=== PATIENT | male | born 1960 | race Caucasian/White ===

== ENCOUNTER 2021-11-27 07:30 | Outpatient (CLI) | payer OTHER, SELFPAY ==
--- NOTE | ~2021-11-27 | NM_ITS ---
EXAMINATION: NM dayna stress w perfusion DATE: 11/27/2021 10:57 INDICATION: Shortness of breath TECHNIQUE: Rest images were obtained following intravenous administration of 10.2 mCi Tc99m tetrofosm in (Myoview). The patient was infused intravenously with Lexiscan (Regadenoson). Then, 32.7 mCi Tc99m tetrofosmin (Myoview) was administered intravenously, and stress images were obtained. Data was maría nstructed into short axis and horizontal and vertical long axis SPECT images. Gated SPECT images were also obtained. COMPARISON: None. FINDINGS: There is no definite reversible or fixed perfusion abnormality to suggest ischemia or infar ction. There is normal left ventricular chamber size, wall motion and ejection fraction. Left ventr icular ejection fraction measures >70%. IMPRESSION: 1. Normal myocardial perfusion at rest and during stress. 2. Left ventricular ejection fraction measuring >70%. Reviewed, dictated and finalized at location A.
--- NOTE | 2021-11-27 07:43 | ECHO_ITS ---
Patient Info Name: Jeronimo Khan Age: 61 years : 1960 Gender: Male Ht: 71 in Wt: 250 lbs BSA: 2.42 m2 HR: 65 bpm BP: 168 / 92 mmHg Heart Rhythm: Sinus Rhythm Technical Quality: Fair Exam Date: 11/27/2021 7:59 AM Exam Location: [facility] Patient Status: Outpatient Admit Date: 11/27/2021 Staff Ordering Physician: Jonas Osman PA-C Pole Inspector: Mee Torres RDCS Attending Provider: Jonas Osman PA-C Referring Physician: Jacqui BRAND; Exam Type: CA echo doppler color flow Study Info Indications R60.9 - Edema, unspecified Complete two-dimensional, color flow and Doppler transthoracic echocardiogram is performed. Summary 1. Complete two-dimensional, color flow and Doppler transthoracic echocardiogram is performed. 2. Left ventricular chamber dimension is normal. 3. Left ventricular systolic function is normal, estimated at 60-65%. 4. The left ventricular diastolic function is abnormal. 5. E/e' 11 is mildly elevated. 6. The mitral valve has mildly calcified annulus. 7. There is mild mitral valve regurgitation. 8. No pulmonary hypertension, estimated pulmonary arterial systolic pressure is 27 mmHg. Left Ventricle E/e' 11 is mildly elevated. Left ventricular chamber dimension is normal. Left ventricular systolic function is normal, estimated at 60-65%. The left ventricular diastolic function is abnormal. Right Ventricle Right ventricular systolic function is normal and with normal TAPSE 2.8 cm. Right ventricular chamber dimension is normal. Left Atria Left atrial chamber dimension is normal. Right Atria Right atrial chamber dimension is normal. Aortic Valve The aortic valve is trileaflet. There is no aortic valve stenosis. There is no aortic valve regurgitation. Pulmonic Valve There is no pulmonic regurgitation. Mitral Valve The mitral valve has mildly calcified annulus. There is no mitral valve stenosis. There is mild mitral valve regurgitation. Tricuspid Valve There is no tricuspid valve regurgitation. No pulmonary hypertension, estimated pulmonary arterial systolic pressure is 27 mmHg. Pericardium/Pleural There is no pericardial effusion. Inferior Vena Cava Normal inferior vena cava with >50% collapse upon inspiration consistent with normal right atrial pressure, 5 mmHg. Aorta The aortic root size at the sinus of Valsalva is normal. Left Ventricular Outflow Tract Name Value Normal LVOT 2D LVOT Diameter 2.0 cm LVOT Doppler LVOT Peak Gradient 6 mmHg LVOT Mean Gradient 3 mmHg LVOT VTI 25 cm LVOT VTI/AV VTI Ratio 0.9 LVOT Stroke Volume 77 ml LVOT CO 4.7 l/min LVOT CI 1.9 l/min/m2 Pulmonic Valve Name Value Normal JOSE L Garcia
--- NOTE | 2021-11-27 08:07 | EST_ITS ---
Patient Info Name: Jeronimo Khan Age: 61 years : 1960 Gender: Male Ht: 73 in Wt: 250 lbs BSA: 2.45 m2 HR: 59 bpm BP: 144 / 71 mmHg Heart Rhythm: Sinus Rhythm Exam Date: 11/27/2021 9:40 AM Exam Location: [facility] Stress Patient Status: Outpatient Admit Date: 11/27/2021 Staff Ordering Physician: Jonas Osman PA-C Attending Provider: Jonas Osman PA-C Exercise Technologist: Aparna Versa CT Exercise Physician: Ming Schultz DO Exam Type: CA stress dayna w NM Study Info Indications R06.02 - Shortness of breath A regadenoson stress test was performed. Summary 1. 1. Negative lexiscan stress test for ischemic ST changes by ECG criteria. 2. 2. Baseline hypertension. 3. 3. Nuclear scan to follow and will be reported separately. Please correlate with it. 4. 4. Patient informed of the above results. Protocol: Lexiscan Stress ECG Details Stage: REST Duration (min): 1 min : 50 sec HR (bpm): 60 SBP (mmHg): 144 DBP (mmHg): 71 Stage: REST Duration (min): 8 min : 27 sec HR (bpm): 62 SBP (mmHg): 144 DBP (mmHg): 71 Stage: STAGE 1 Duration (min): 1 min : 0 sec HR (bpm): 79 SBP (mmHg): 141 DBP (mmHg): 60 Stage: RECOVERY Duration (min): 1 min : 0 sec HR (bpm): 74 SBP (mmHg): 141 DBP (mmHg): 60 Stage: RECOVERY Duration (min): 2 min : 0 sec HR (bpm): 70 SBP (mmHg): 141 DBP (mmHg): 60 Stage: RECOVERY Duration (min): 3 min : 0 sec HR (bpm): 66 SBP (mmHg): 131 DBP (mmHg): 63 Stage: RECOVERY Duration (min): 3 min : 25 sec HR (bpm): 65 SBP (mmHg): 131 DBP (mmHg): 63 Rest HR: 62 bpm Peak HR: 81 bpm Rest Sys BP: 144 mmHg Peak Sys BP: 141 mmHg Max Pred HR: 161 bpm % Max Pred HR: 50 % Target HR: 137 bpm Max RPP: 11,421 bpm*mmHg Termination Reason: Completed protocol Cardiac Symptoms: Shortness of breath Total Time: 1 min : 0 sec Rest Treadwell BP: 71 mmHg Peak Treadwell BP: 60 mmHg Total Dose: 0.4 mg Resting ECG Sinus rhythm. Stress ECG No ST changes. Arrhythmias None. Report Signatures
== END 2021-11-27 07:31 | disposition home or self-care (01) ==
LOC: ANHCARD 07:34
PROVIDERS: PCP Physician Assistant; Visit Provider Physician Assistant
DX: R06.02 Shortness of breath (principal); R60.9 Edema, unspecified; Z82.49 Family history of ischemic heart disease and other diseases of the circulatory system; I34.0 Nonrheumatic mitral (valve) insufficiency
CPT/HCPCS: 78452; 93017; 93306; A9502; J2785

== ENCOUNTER 2021-12-03 16:09 | Outpatient (CLI) | payer OTHER, SELFPAY ==
--- NOTE | ~2021-12-03 | XR_ITS ---
EXAM: XR ankle LT min 3V DATE: 12/03/2021 17:06 HISTORY: FALL LAST WEEK. PAIN IN LT ANKLE RADIATING TO DORSAL FOOT . COMPARISON: None available. FINDINGS: Normal mineralization. No fracture or dislocation. No lytic or blastic lesion. Suggestion of the lateral tibiotalar joint space widening. Mild tibiotalar arthritic change. No erosion or perio steal change. Ankle soft tissue swelling, more prominent laterally. IMPRESSION: Lateral joint space widening may indicate presence of the lateral ligamentous injury. Reviewed, dictated and finalized at location K. IMPRESSION: Lateral joint space widening may indicate presence of the lateral l igamentous injury.
--- NOTE | ~2021-12-03 | XR_ITS ---
EXAM: XR hip LT min 3V w AP pelvis DATE: 12/03/2021 17:05 HISTORY: FALL LAST WEEK, LT HIP PAIN . COMPARISON: None available. FINDINGS: Normal mineralization. No fracture or dislocation. No lytic or blastic lesion. Minimal lum bar spine degenerative change. Mild left hip superior joint space narrowing. No erosion or periosteal change. Soft tissues within normal limits. IMPRESSION: Mild left hip osteoarthritis. Reviewed, dictated and finalized at location K.
--- NOTE | ~2021-12-03 | XR_ITS ---
EXAM: XR knee LT 3V DATE: 12/03/2021 17:06 HISTORY: FALL LAST WEEK, PAIN ALL AROUND LT KNEE . COMPARISON: None available. FINDINGS: Normal mineralization. No fracture or dislocation. No lytic or blastic lesion. Mild medial joint space narrowing and osteophytosis. Patellofemoral osteophytosis. Small volume joint fluid. No erosion or periosteal change. Soft tissues within normal limits. IMPRESSION: Mild bicompartmental osteoarthritic change. Small left knee joint effusion. Reviewed, dictated and finalized at location K. IMPRESSION: Mild bicompartmental osteoarthritic change. Small left knee joint e ffusion.
== END 2021-12-03 16:10 | disposition home or self-care (01) ==
PROVIDERS: PCP Physician Assistant; Visit Provider Physician Assistant
DX: M25.572 Pain in left ankle and joints of left foot (principal); M16.12 Unilateral primary osteoarthritis, left hip; M17.12 Unilateral primary osteoarthritis, left knee; M25.462 Effusion, left knee
CPT/HCPCS: 73502; 73562; 73610

== ENCOUNTER 2021-12-11 08:49 | Outpatient (CLI) | payer OTHER, SELFPAY ==
--- NOTE | 2021-12-11 11:00 | NEURO_ITS ---
Impression: # Complains of numbness of right hand. # Evolving right Carpal Tunnel Syndrome. # No ulnar neuropathy. # Normal needle/EMG exam. Nerve Conduction Studies Anti Sensory Summary Table Stim Site NR Peak (ms) P-T Amp (?V) Site1 Site2 Delta-P (ms) Dist (cm) Ryan (m/s) Right Median Anti Sensory (2-3nd Digit) Wrist 3.6 29.3 Wrist 2-3nd Digit 3.6 14.0 39 Wrist 3.9 15.5 Wrist 2-3nd Digit 3.6 14.0 39 Right Radial Anti Sensory (Base 1st Digit) Wrist 2.3 6.1 Wrist Base 1st Digit 2.3 0.0 Right Ulnar Anti Sensory (5th Digit) Wrist 2.6 24.9 Wrist 5th Digit 2.6 14.0 54 Motor Summary Table Stim Site NR Onset (ms) O-P Amp (mV) Site1 Site2 Delta-0 (ms) Dist (cm) Ryan (m/s) Right Median Motor (Abd Poll Brev) Wrist 3.8 2.7 Elbow Wrist 4.6 26.0 57 Elbow 8.4 2.2 Right Ulnar Motor (Abd Dig Minimi) Wrist 2.5 6.2 A Elbow Wrist 4.8 28.0 58 A Elbow 7.3 4.2 B Elbow Wrist 3.3 20.0 61 B Elbow 5.8 3.9 F Wave Studies NR F-Lat (ms) L-R F-Lat (ms) Right Median (Mrkrs) (Abd Poll Brev) 25.93 Right Ulnar (Mrkrs) (Abd Dig Min) 24.42 EMG Side Muscle Nerve Root Ins Act Fibs Amp Dur Recrt Comment Right 1stDorInt Ulnar C8-T1 Nml Nml Nml Nml Nml Right Ext Indicis Radial (Post Int) C7-8 Nml Nml Nml Nml Nml Right Ext Digitorum Radial (Post Int) C7-8 Nml Nml Nml Nml Nml Right BrachioRad Radial C5-6 Nml Nml Nml Nml Nml Right PronatorTeres Median C6-7 Nml Nml Nml Nml Nml Right Abd Poll Brev Median C8-T1 Nml Nml Nml Nml Nml MTDD
== END 2021-12-11 08:50 | disposition home or self-care (01) ==
PROVIDERS: PCP Physician Assistant; Visit Provider Physician Assistant
DX: R20.0 Anesthesia of skin (principal); G56.01 Carpal tunnel syndrome, right upper limb
CPT/HCPCS: 95886; 95909

== ENCOUNTER 2021-12-26 08:00 | Outpatient (RCR) | payer OTHER, SELFPAY ==
--- NOTE | 2021-12-02 08:45 | PTOPEVAL ---
PHYSICAL THERAPY EVALUATION AND PLAN OF CARE Thank you for referring Jeronimo Khan to [facility].? The patient is scheduled to be seen for therapy? 1-2x/week for 4 weeks. Please review, sign, date and return this plan of care SYLVIA. I agree with and certify that the following plan of care is medically necessary. Referring Physician Date Attending Provider: Jonas Osman, AMY Diagnosis right sided neck pain Onset 1.5 years Subjective Information pain in the right side of neck Query Text:As Reported By Patient/ starting behing right ear Family and will move down the back around his shoulder blades. looks down and increases. takes advil to relieve symptoms. right hand goes numb intermittently starting about a year ago. Likes to play drums and the shoulder will start to ache and it will go down the hand and hand will go numb - started at least 2 years ago. Self Report Pain Assessment Right Neck Reported Pain Level 4 Pain Description Aching,Dull Pain Frequency Chronic,Continuous Lowest Pain Intensity 3 Greatest Pain Intensity 6 Other Pain Aggravating Factors sleeping position; working at desk Cervical ROM Cervical Flexion (0-60) 60 Query Text:Active in Degrees Cervical Extension (0-70) 45 Query Text:Active in Degrees Cervical Lateral Flexion Right (0-50) 40 Query Text:Active in Degrees Cervical Lateral Flexion Left (0-50) 37 Query Text:Active in Degrees Cervical Rotation Right (0-90) 60 Query Text:Active in Degrees Cervical Rotation Left (0-90) 65 Query Text:Active in Degrees Upper Extremity Range of Motion General Upper Extremity Range of Motion Gross Upper Extremity Range of Motion symmetrical but limited at end Comments range elevation with decreased thoracic extension and significantly decreased bilateral internal rotation behind back Upper Extremity Muscle Strength Testing General Upper Extremity Strength Gross Upper Extremity Strength Comments right grossly 4-/5 left grossly 4+ to 5/5 symmetrical 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
--- NOTE | 2021-12-05 12:52 | PCPTNOTE ---
Patient called & cancelled scheduled appointment this date due to not being able to make.
--- NOTE | 2021-12-26 08:55 | PTOPEVAL ---
PHYSICAL THERAPY DISCHARGE REPORT 12-26-21 Refer to the clinical summary below, for his status today, compared to the initial evaluation. The goals were partially achieved. Discharge PT services at this time. He is to continue with his HEP and pain management techniques. Thank you for referring Jeronimo Khan to [facility].? Please review, sign, date and return this Discharge report SYLVIA. I agree with and certify that the following plan of care is medically necessary. Referring Physician Date Attending Provider: Jonas Osman PA-C Subjective Information Jeronimo reports: therapy has Query Text:As Reported By Patient/ helped and doing somewhat Family better overall; neck is still sore but not as bad; been doing the stretches and they help; had nerve conduction study--some carpal tunnel in R hand; able to play drums past few times without hand going to sleep; wants to get his back and L hip checked out --they are causing him pain and neck/shoulder is better; wants to stop PT now for them; Pain Assessment Pain Scale Pain Scale Used Numeric (1 - 10) Self Report Pain Assessment Right Scapula Pain Description Soreness Pain Frequency Chronic,Intermittent Lowest Pain Intensity 0 Greatest Pain Intensity 2 Other Pain Aggravating Factors wake up sore; Pain Behaviors Grimacing,Guarding Right Neck Pain Frequency Chronic,Intermittent Other Pain Description R cervical; no headaches; have a stretch and feel little in scapula R Lowest Pain Intensity 0 Greatest Pain Intensity 2 Pain Aggravating Factors Exercise/Activity Other Pain Aggravating Factors wake up in AM; Additional Pain Score Comments sleeps OK- generally on back or R side; cannot lie on L shoulder due to shoulder pain in past; also have back issues--seeing ortho dr later today is not using heat on neck-- discussed PRN use with heating pad/ hot shower does help; no numbness in R hand except one time in past week when playing the drums for about 1 & 1/2 hours. education on stretching wrist
== END 2022-02-17 09:24 | disposition home or self-care (01) ==
LOC: ANHPT 08:00
PROVIDERS: PCP Physician Assistant; Visit Provider Physician Assistant
DX: R10.31 Right lower quadrant pain (principal)
CPT/HCPCS: 97110; 97140; 97162

== ENCOUNTER 2022-01-13 13:02 | Outpatient (CLI) | payer OTHER, SELFPAY ==
--- NOTE | ~2022-01-13 | XR_ITS ---
EXAMINATION: XR lg joint inject/asp w image DATE: 01/13/2022 13:46 INDICATION: Left hip arthritis with left hip pain when sitting for long periods of time TECHNIQUE: A time-out was performed to verify the patient's name, date of , and procedure to b e performed. The procedure including the risks, benefits, and alternatives was discussed with the pat ient. Risks discussed included bleeding and infection. The patient understood the risks and agreed to proceed. The skin overlying the left hip joint was prepped and draped in usual sterile fashion. An esthetic was administered with 1% lidocaine subcutaneously. A 22 G needle was advanced under fluoros copic guidance into the joint. Injection of a small amount of gas confirmed intra-articular position of the needle. Subsequently, injectate consisting of a 2:1 mixture of 0.5% Sensorcaine: 80 mg/mL De po-Medrol for a total dosage of 80 mg Depo-Medrol was instilled. The needle was removed and the entry site was cleaned and dressed. There were no immediate complications. Fluoroscopy exposure time was 0.1 minutes. The total number of images was 1. FINDINGS: Real-time fluoroscopy demonstrates the needle and injected gas in the left hip joint. Patie nt's pain prior to procedure:0/10. Patient's pain following the procedure: 0/10. IMPRESSION: 1. Successful left hip joint injection of local anesthetic and steroid. Reviewed, dictated and finalized at location A.
== END 2022-01-13 13:03 | disposition home or self-care (01) ==
PROVIDERS: PCP Physician Assistant; Visit Provider Nurse Practitioner Family
DX: M16.12 Unilateral primary osteoarthritis, left hip (principal)
CPT/HCPCS: 20610; 77002; J1040

== ENCOUNTER → 2022-02-21 10:47 | Outpatient (CLI) | payer OTHER, SELFPAY ==
--- NOTE | ~2022-02-21 | MR_ITS ---
EXAMINATION: MR knee LT wo con DATE: 02/21/2022 11:22 INDICATION: Left knee pain TECHNIQUE: Magnetic resonance imaging (MRI) of the left knee was performed without intravenous contra st. Sequences included coronal PD-weighted FSE, coronal PD-weighted FS FSE, sagittal T2-weighted FSE , sagittal PD-weighted FS FSE and axial PD weighted fat saturated FSE. COMPARISON: Left knee radiographs dated 12/03/2021 FINDINGS: Medial compartment: Medial meniscus is normal. Articular cartilage is normal. Lateral compartment: Lateral meniscus is normal. Articular cartilage is normal. Patellofemoral compartment: Partial-thickness cartilage loss involving greater than 50% the cartilage thickness in places bridgin g/near full-thickness without degenerative subchondral changes along the caudal third of the patella including both the medial and lateral patellar facets. Deep chondral fissure with subtle underlying c ortical irregularity and minimal edema-like reticular signal change at the caudal aspect of the troch lear groove. Ligaments and tendons: Anterior and posterior cruciate ligaments are normal. Moderate grade sprain/partial tear at the proxi mal aspect of the medial collateral ligament characterized by thickening and mild increased signal wi thout significant surrounding edema consistent with a subacute to chronic injury. The fibular collate ral ligament complex is normal. The extensor mechanism is normal. The visualized medial and lateral h amstring tendons as well as the iliotibial band are normal. Fluid: Physiologic amount of fluid in the joint space. No loose osteochondral bodies identified. Small Marr 's cyst. Osseous/other: Bone alignment is normal. No fracture or pathologic marrow replacing process. There is mild edema at the superficial suprapatellar fat pad which can be seen with fat pad impingement syndrome. IMPRESSION: 1. Likely subacute to chronic moderate grade sprain/partial tear of the proximal medial collateral li gament. Line 2. Mild patellofemoral osteoarthritis with small focus of high-grade chondral malacia the inferior tr ochlear groove and moderate grade chondral malacia along the inferior patella. 3. Mild edema in the superficial suprapatellar fat pad consistent with fat pad impingement syndrome. Reviewed, dictated and finalized at location A. IMPRESSION: 1. Likely subacute to chronic moderate grade sprain/partial tear of the proxima l medial collateral ligament. Line 2. Mild patellofemoral osteoarthritis with small focus of high-grade chondral m alacia the inferior trochlear groove and moderate grade chondral malacia along the inferior patella. 3. Mild edema in the superficial suprapatellar fat pad consistent with fat pad impingement syndrome.
== END ==
PROVIDERS: PCP Internal Medicine; Visit Provider Nurse Practitioner Family
DX: M25.562 Pain in left knee (principal); M17.12 Unilateral primary osteoarthritis, left knee
CPT/HCPCS: 73721